=== PATIENT | male | born 1960 | race Caucasian/White ===

== ENCOUNTER → 2018-08-07 08:16 | Outpatient (CLI) | payer BC ==
--- NOTE | 2018-08-10 14:36 | ST ---
PATIENT:DONNY HALL MEDICAL RECORD: [id number] SEX: M LOCATION:[facility] ORDER #: ADMISSION DATE: 08/07/18 AGE OF PATIENT: 57 REFERRING PHYSICIAN: INTERPRETING PHYSICIAN: JOSELO CARRILLO MD DATE OF SERVICE: 08/07/2018 Nuclear Stress Test INDICATION: Angina, abnormal ECG, family history of coronary artery disease. The patient was exercised in standard Evan protocol for 5 minutes 30 seconds, terminated due to achievement of maximum target heart rate response with 33 mCi of sestamibi injected at peak stress 11 mCi were used previously for rest images. FINDINGS: Gated SPECT reveals a preserved mildly decreased ejection fraction at 48% with good wall motioning and thickening and brightening throughout all segments. SPECT imaging Cardiolite was used as myocardial fusion agent. There is definite reversibility inferiorly and laterally as well as apically. This includes the basal, mid apical, inferior segments, the apex itself, apical lateral, mid lateral and basal lateral segments. The degree of reversibility is moderate. The amount of myocardial involved is large. OVERALL IMPRESSION: This is an abnormal nuclear stress test, large area of reversible ischemia, inferior apically as well as laterally suggestive of hemodynamically significant coronary artery disease and possibly multivessel disease. We will proceed with coronary angiography to followup study. TRANSINT:[id number] Voice Confirmation ID: [id number] DOCUMENT ID: [id number] JOSELO CARRILLO MD at 1436 CC: [address] [id number] DICTATION DATE: 08/08/18 1145 SANITATION ENGINEER: 08/09/18 0319 DEP CLI 08/07/18 [place] [id number] [place] [id number]
== END | disposition home or self-care (01) ==
LOC: D.HCCARDIO 07-31 08:30
DX: I20.9 Angina pectoris, unspecified (principal)

== ENCOUNTER → 2018-08-18 05:59 | Outpatient (CLI) | payer BC ==
[~2018-08-18] VITALS: Ht 165.1 cm; Wt 92.3 kg
--- NOTE | ~2018-08-18 | HEMODYNAMI ---
PATIENT:DONNY HALL MEDICAL RECORD: [id number] : 56 LOCATION:[facility] ADMISSION DATE: 08/18/18 Generatedon:08/18/20188:33 Patient name: DONNY HALL Patient #: [id number] SSN: : 1960 Date of study: 08/18/2018 Page: Of Hemodynamic Procedure Report Patient Data Patient Demographics Procedure consent was obtained First Name: DONNY Gender: Male Last Name: RAFAEL : 1960 Patient #: [id number] Age: 57 year(s) Race: Unknown Additional ID: [id number] Contact details Address: [address] [place] [address] [facility] State: [place] City: [place] Zip code: [address] Past Medical History Allergies: No known allergies Admission Admission Data Admission Date: 08/18/2018 Admission Time: 5:59 Procedure Procedure Types Cath Procedure Diagnostic Procedure LHC Coronaries only Sedation Charges Moderate Sedation up to 15 minutes Procedure Description Procedure Date Procedure Date: 08/18/2018 Procedure Start Time: 8:12 Procedure End Time: 8:33 Procedure Staff Name Function Chris Estrada MD Performing Physician Chela Medina RT Monitor Tika Pinon RN Nurse Romulo Walker RN Director Food Safety Nohemi Harper RT Scrub Procedure Data Cath Procedure Fluoroscopy Diagnostic fluoroscopy Total fluoroscopy Time: 6.9 time: 6.9 min min Diagnostic fluoroscopy Total fluoroscopy dose: 691 dose: 691 mGy mGy Contrast Material Contrast Material Type Amount (ml) Isovue 300 43 Entry Location Entry Primary Successful Side Size Upsize Upsize Entry Closure Sales ccessful Closure Location (Fr) 1 (Fr) 2 (Fr) Remarks Device Remarks Radial Right 6 Fr Mechanical artery Short Compression Femoral Right 5 Fr Exoseal artery Estimated blood loss: 5 ml Diagnostic catheters Device Type Used For End Catheter Placement DIAGNOSTIC Carlisle 110cm 5 LV Angiography Fr catheter ([id number]) MULTIPACK JL 4.0 5Fr Left Coronary catheter Angiography MULTIPACK 3DRC 5Fr Right Coronary catheter Angiography MULTIPACK Pigtail 5 Fr LV Angiography catheter DIAGNOSTIC AL1 5Fr LV Angiography catheter ([id number]) Procedure Complications No complications Procedure Medications Medication Administration Route Dosage 0.9% NaCl I.V. 100 ml/hr Oxygen etCO2 Nasal cannula 2 l/min Lidocaine 2% added to field 20 Heparin Flush Bag added to field 2 bags (1000units/500ml NS) Radial Cocktail added to field 1 syringe (Verapomil 2mg/Nitro 400mcg/Heparin 1500units) Versed I.V. 2 mg Fentanyl I.V. 50 mcg Versed I.V. 1 mg Fentanyl I.V. 25 mcg Versed I.V. 1 mg Fentanyl I.V. 25 mcg Hemodynamics Rest Heart Rate: 75 (bpm) Snapshots Pre Cath Intra NCS Post Cath Vital Signs Time Heart Resp SPO2 etCO2 NIBP (mmHg) Rhythm Pain Sedation Rate (ipm) (%) (mmHg) Status Level (bpm) 7:43:02 82 16 98 21.8 144/90(127) NSR 0 (11) 10(A) , No pain 7:47:25 80 17 98 36.8 125/80(99) NSR 0 (11) 10(A) , No pain 7:52:34 72 17 97 37.6 101/81(92) NSR 0 (11) 10(A) , No pain 7:56:42 78 15 97 39.1 105/71(89) NSR 0 (11) 10(A) , No pain 8:00:50 79 15 98 42.1 109/74(85) NSR 0 (11) 10(A) , No pain 8:06:01 70 15 98 34.6 102/65(85) NSR 0 (11) 10(A) , No pain 8:10:13 72 15 96 28.6 104/61(82) NSR 0 (11) 9(A) , No pain 8:14:23 76 16 97 35.3 105/66(83) NSR 0 (11) 9(A) , No pain 8:18:31 80 15 96 25.6 98/63(83) NSR 0 (11) 10(A) , No pain 8:22:41 76 12 97 24.1 109/65(91) NSR 0 (11) 9(A) , No pain 8:26:48 79 12 98 25.8 108/76(92) NSR 0 (11) 9(A) , No pain 8:30:54 73 11 96 37.6 104/70(90) NSR 0 (11) 10(A) , No pain Medications Time Medication Route Dose Verified Delivered Reason Notes Ef fectiveness by by 7:40:26 0.9% NaCl I.V. 100 Chris Tika used for ml/hr Sean Zi procedure MD MG 7:40:33 Oxygen etCO2 2 l/min Chris Tika used for Nasal [facility] procedure cannula MD MG 7:40:39 Lidocaine 2% added 20ml Chris Perez for local to vial [facility] anesthetic field MD SCHREIBER 7:40:47 Heparin Flush added 2 bags Chris Perez used for Bag to [facility] procedure (1000units/500ml field MD SCHREIBER NS) 7:44:30 Radial Cocktail added 1 Chris Chris used for (Verapomil to syringe [facility] procedure 2mg/Nitro field MD SCHREIBER 400mcg/Heparin 1500units) 8:03:59 Versed I.V. 2 mg Chris Tika for SeanClaudio Pinon sedation MD MG 8:04:06 Fentanyl I.V. 50 mcg Chris Tika for St Claudio Pinon sedation MD MG 8:08:46 Versed I.V. 1 mg Chris Tika for [facility] Claudio Pinon sedation MD MG 8:08:49 Fentanyl I.V. 25 mcg Chris Tika for St Claudio Pinon sedation MD MG 8:17:47 Versed I.V. 1 mg [address] Tika for [address] Claudio Pinon sedation MD MG 8:18:26 Fentanyl I.V. 25 mcg Chris Tika for St Claudio Pinon sedation MD MGmedart operator Log Time Note 7:27:18 Time tracking: Regular hours (M-F 7:00 - 5:00) 7:27:22 Plan of Care:Hemodynamics will remain stable., Cardiac rhythm will remain stable., Comfort level will be maintained., Respiratory function will remain adequate., Patient/ family verbilizes understanding of procedure., Procedure tolerated without complication., Recovers from procedure without complications.. 7:27:25 Romulo Walker RN sent for patient. Start room use. 7:36:31 Patient received from Pre/Post Procedure Room to CCL 1 Alert and oriented. Tansferred to table in Supine position. 7:36:32 Warm blankets applied, and dari hugger turned on for patient comfort. 7:36:33 Correct patient and procedure confirmed by team. 7:36:34 Signed procedure consent form obtained from patient. 7:36:37 ECG and BP/O2 sat monitors applied to patient. 7:36:37 Full Disclosure recording started 7:40:26 0.9% NaCl 100 ml/hr I.V. was administered by Tika Pinon RN; used for procedure; 7:40:33 Oxygen 2 l/min etCO2 Nasal cannula was administered by Tika Pinon RN; used for procedure; 7:40:39 Lidocaine 2% 20ml vial added to field was administered by Chris Estrada MD; for local anesthetic; 7:40:47 Heparin Flush Bag (1000units/500ml NS) 2 bags added to field was administered by Chris Estrada MD; used for procedure; 7:41:46 Vital chart was started 7:41:50 Rhythm: sinus rhythm 7:42:02 H&P Date Dictated: 08/14/2018 Within 30 days and on chart., H&P Addendum completed by physician on day of procedure. (MUST COMPLETE FOR ALL OUTPATIENTS). 7:44:12 Pre-procedure instructions explained to patient. 7:44:13 Pre-op teaching completed and patient verbalized understanding. 7:44:18 Family in patients room. 7:44:19 Patient NPO since Midnight. 7:44:26 Patient allergic to No known allergies 7:44:28 Is the patient allergic to Iodine/contrast media? No. 7:44:30 Radial Cocktail (Verapomil 2mg/Nitro 400mcg/Heparin 1500units) 1 syringe added to field was administered by Chris Estrada MD; used for procedure; 7:44:30 Is patient on blood thinner?No 7:44:31 Patient diabetic? No. 7:44:35 Previous problem with sedation/anesthesia? No ? 7:44:36 Snore? Yes 7:44:37 Sleep apnea? No 7:44:39 Deviated septum? No 7:44:40 Opens mouth fully? Yes 7:44:41 Sticks out tongue? Yes 7:44:44 Airway obstruction? No ? 7:44:55 Dentures? No LOST TEETH 7:45:04 Pre procedure: right dorsailis pedis pulse 2+ Normal; easily identifiable; not easily obliterated 7:45:07 Modified Richard's test Ulnar < 7 seconds 7:45:09 Patient pain scale 0/10 ?. 7:45:16 IV patent on arrival in left forearm with 0.9% NaCl at [facility]. 7:45:19 Lab results completed and on chart. 7:45:28 Right Radial & Right Groin area was prepped with chlora-prep and draped in sterile fashion 7:45:34 Alarms reviewed by R. N. 7:45:35 Sharps counted by scrub and verified by R.N. 7:45:38 Use device set Radial Dx or PCI 7:45:39 ACIST Syringe (76587) opened to sterile field. 7:45:40 Medline Cath Pack ([id number]) opened to sterile field. 7:45:40 Bag Decanter (2002S) opened to sterile field. 7:45:41 DIAGNOSTIC WIRE .035 260cm J wire (315005) opened to sterile field. 7:45:41 ACIST Hand Control (40771) opened to sterile field. 7:45:42 ACIST Manifold (95431) opened to sterile field. 7:45:46 MBrace Wrist Support ([id number]) opened to sterile field. 7:45:47 SHEATH 6FR Slender (35-8191) opened to sterile field. 7:48:39 Baseline sample Acquired. 7:52:24 Physician paged 7:53:25 Zero performed for pressure channel P1 8:03:26 Final Timeout: patient, procedure, and site verified with staff and physician. All members of the team are in agreement. 8:03:29 Right Radial site verified by team. 8:03:33 Physical assessment completed. ASA score P 2 - A patient with mild systemic disease as per Chris Estrada MD. 8:03:36 Sedation plan: IV Moderate Sedation Medication:Versed, Fentanyl 8:03:59 Versed 2 mg I.V. was administered by Tika Pinon RN; for sedation; 8:04:06 Fentanyl 50 mcg I.V. was administered by Tika Pinon RN; for sedation; 8:08:46 Versed 1 mg I.V. was administered by Tika Pinon RN; for sedation; 8:08:49 Fentanyl 25 mcg I.V. was administered by Tika Pinon RN; for sedation; 8:12:19 Procedure started. 8:12:28 Local anesthetic to right radial artery with Lidocaine 2% by Chris Estraad MD.INITIAL ACCESS ONLY 8:13:26 A 6 Fr Short sheath was inserted into the Right Radial artery 8:13:39 A DIAGNOSTIC Carlisle 110cm 5 Fr catheter (098319) was advanced over the wire and used for LV Angiography. REMOVED UNABLE TO ADVANCE 8:15:28 GLIDE WIRE Super Stiff Angled 260cm (CZ1778) opened to sterile field. 8:16:02 TORQUE DEVICE PLASTIC .038 ( TD01) opened to sterile field. 8:16:24 SUPER STIFF wire advanced. 8:17:29 Wire removed. 8:17:34 Local anesthetic to right femoral artery with Lidocaine 2% by Chris Estrada MD.ADDITIONAL ACCESS 8:17:47 Versed 1 mg I.V. was administered by Tika Pinon RN; for sedation; 8:18:10 Use device set Multipack Set 8:18:14 DIAGNOSTIC Multipack 5Fr catheter set (MF2250) opened to sterile field. 8:18:26 Fentanyl 25 mcg I.V. was administered by Tika Pinon RN; for sedation; 8:18:31 A 5 Fr sheath was inserted into the Right Femoral artery 8:19:04 A MULTIPACK JL 4.0 5Fr catheter was advanced over the wire and used for Left Coronary Angiography. 8:20:33 SHEATH 5FR Devens (NMQ077) opened to sterile field. 8:21:07 Catheter removed. 8:21:28 A MULTIPACK 3DRC 5Fr catheter was advanced over the wire and used for Right Coronary Angiography. 8:21:57 Catheter removed. 8:23:38 A MULTIPACK Pigtail 5 Fr catheter was advanced over the wire and used for LV Angiography. REMOVED UNABLE TO CROSS VALVE 8:25:27 A DIAGNOSTIC AL1 5Fr catheter ([id number]) was advanced over the wire and used for LV Angiography. 8:26:04 ROADRUNNER .035 260 glide wire (W28239) opened to sterile field. 8:26:56 ROADRUNNER wire advanced. 8::57 Timer 1 started at 8:26 AM, stopped at 8:28 AM, duration 00:02:36 sec. 8:29:00 Catheter removed. 8:29:05 Wire removed. 8:29:19 Sheath removed intact; hemostasis achieved with Exoseal to the Right Femoral artery. 8::32 Sheath removed intact; hemostasis achieved with Mechanical Compression to the Right Radial artery. 8:29:34 Procedure ended.(Physican Out) 8:29:44 Fluoroscopy time 06.90 minutes. 8:29:50 Fluoroscopy dose: 691 mGy 8:29:50 Flurop Dose total: 691 8:30:07 Contrast amount:Isovue 300 43ml. 8:30:09 Sharps counted by scrub and verified by R.N. 8:30:11 TR band inflated with 12cc of air. 8:30:16 Insertion/operative site no bleeding no hematoma. 8:30:19 Post-op/insertion site Right Femoral artery dressed using a 4 x 4 and Tegaderm. 8:30:26 Post right femoral artery:stable, clean and dry 8:30:58 Post right radial artery:stable, clean and dry 8:31:00 Post Procedure Pulses reassessed and unchanged 8:31:03 Post-procedure physical assessment completed. ASA score P 2 - A patient with mild systemic disease as per Chris Estrada MD. 8:31:06 Post procedure rhythm: unchanged. 8:31:08 Estimated blood loss: 5 ml 8:31:09 Post procedure instruction explained to patient.Patient verbalizes understanding. 8:31:09 Patient needs reinforcement of post procedure teaching. 8:31:18 Procedure type changed to Cath procedure, Diagnostic procedure, LHC, Coronaries only, Sedation Charges, Moderate Sedation up to 15 minutes 8::34 Procedure Complication : No complications 8:31:36 See physician's report for complete and final results. 8:32:08 TR BAND Standard ([id number]) opened to sterile field. 8:32:18 EXOSEAL 5Fr (EX500) opened to sterile field. 8:32:19 Tegaderm 4 x 4 (1626W) opened to sterile field. 8:32:38 Procedure and supply charges have been captured, reviewed, submitted and are correct. 8:32:47 Vital chart was stopped 8:32:49 Report given to Pre/Post Procedure Room. 8:32:51 Patient transfered to Pre/Post Procedure Room with Stretcher. 8:33:00 Procedure ended. 8:33:00 Full Disclosure recording stopped 8:33:03 End room use (Document Last) Device Usage Item Name Manufacture Quantity Catalog Hospital Part Current Minimal Lot# / Number Charge Number Stock Stock Serial# Code ACIST Acist 1 97032 226866 005170 465966 20 Syringe Medical (66620) Systems Inc Medline Medline 1 [id number] 399346 65211 859027 5 Cath Pack ([id number]) Bag Microtek 1 2001S 339766 73271 229056 5 Decanter Medical Inc. () DIAGNOSTIC St Darryn 1 507473 028369 666935 523017 30 WIRE .035 260cm J wire (050146) ACIST Hand Acist 1 19877 583950 348270 840924 5 Control Medical (68371) Systems Inc ACIST Acist 1 35530 550131 716305 068024 5 Manifold Medical (27214) Systems Inc MBrace Advanced 1 140-0250-00 847664 70583 908446 5 Wrist Vascular Support Dynamics ([id number]) SHEATH 6FR Terumo 1 [id number] 156619 421900 764229 5 Slender (80-1060) DIAGNOSTIC Terumo 1 40-5013 592810 278538 784083 5 Carlisle 110cm 5 Fr catheter (534826) GLIDE WIRE Terumo 1 [id number] 155621 622919 009279 5 Super Stiff Angled 260cm (WY3490) TORQUE [place] 1 TD01 988303 853705 054338 5 DEVICE Scientific PLASTIC .038 ( TD01) DIAGNOSTIC Cardinal 1 RV6849 582122 86782 982509 30 Multipack Health 5Fr catheter set (JK6343) MULTIPACK Cardinal 1 160771 5 JL 4.0 5Fr Health catheter SHEATH 5FR Terumo 1 RYI957 669595 671447 155369 5 Devens (BDL471) MULTIPACK Cardinal 1 014478 5 3DRC 5Fr Health catheter MULTIPACK Cardinal 1 500941 5 Pigtail 5 Health Fr catheter DIAGNOSTIC Cardinal 1 [id number] 357720 215028 759567 15 AL1 5Fr Health catheter (130589N) [facility] Medical 1 E49290 173784 486383 224463 5 .035 260 glide wire (G56988) TR BAND Terumo 1 [id number] 681674 200462 656037 40 Standard (LVB13GME) EXOSEAL 5Fr Cardinal 1 EX500 790783 144366 241916 10 (EX500) Health Tegaderm 4 3M 1 1626W 362040 368399 703866 5 x 4 (1626W) Signature Audit Dow[place] Stage Time Signature Unsigned Intra-Procedure 08/18/2018 Chela 8:33:36 AM Counts RT(R) Signatures Monitor : Chela Signature : Counts RT Date : Time : [place] [id number] [place] [address]
[~2018-08-18 05:59] MED LIST: AMIODARONE HCL200 MG PO; AUGMENTIN 875-11 TAB PO; BAYER CHEWABLE81 MG PO; ECOTRIN325 MG PO; HEMOCYTE PLUS C1 CAP PO; K-DUR20 MEQ PO; LASIX40 MG PO; LOPRESSOR25 MG PO; NIFEDIPINE30 MG/BOT1 PO; PERCOCET 5-3251 TAB PO; ZANTAC300 MG PO
[2018-08-18 06:50] VITALS: BP 135/82; Ht 165.1 cm; Wt 92.3 kg
[2018-08-18 06:55] LABS: BASOPHILS 0.5 % (0-2); EOSINOPHILS 12.7 % (0-7); HEMATOCRIT 44.5 % (42.0-54.0); HEMOGLOBIN 15.2 g/dL (13.5-17.5); IMMATURE GRANULOCYTES 0.2 % (0-5); LYMPHOCYTES 40.4 % (15-50); MCH 30.3 pg (26.0-34.0); MCHC 34.2 g/dL (31.0-37.0); MCV 88.8 fL (80.0-100.0); MEAN PLATELET VOLUME 10.5 fL (7.4-10.4); MONOCYTES 11.5 % (2-11); NEUTROPHILS 34.7 % (40-80); PLATELET COUNT 251 10x3/uL (130-400); RBC 5.01 10x6/uL (4.20-6.10); RDW 12.8 % (11.5-14.5); WBC 8.3 10x3/uL (4.8-10.8)
[2018-08-18 07:01] LABS: CALC OSMOLALITY 280 mosm/kg (275-300); CALCIUM 8.9 mg/dL (8.5-10.1); CHLORIDE - SERUM 103 mmol/L (98-107); GLUCOSE 114 mg/dL (74-106); POTASSIUM - SERUM 3.9 mmol/L (3.5-5.1); SODIUM 139 mmol/L (136-145); UREA NITROGEN 17 mg/dL (7-18); eGFR NON AFRICAN AMERICAN 81 mL/min (90-120)
--- NOTE | 2018-08-18 08:56 | NUR ---
RECIEVED TO ROOM VIA STRETCHER FROM ETL ANALYST DEVELOPER WITH TR BAND TO R/WRIST CDI AND 5 FR EXOSEAL R/GROIN CDI NO BLEEDING OR HEMATOMA NOTED. PATIENT CONNECTED TO MONITOR FOR OBSERVATION WITH HR 72 BP 101/62 CHEST PAIN IS DENIED. INSTRUCTED PATIENT TO KEEP HEAD FLAT ON PILLOW WITH RLE STRAIGHT
--- NOTE | 2018-08-18 09:03 | NUR ---
DR SHARP PRESENT AT BEDSIDE TALKING TO PATIENT AND FAMILY. VSS WITH NO DISTRESS. TR BAND IS TO R/WRIST CDI AND 5 FR EXOSEAL R/GROIN IS CDI
--- NOTE | 2018-08-18 09:19 | NUR ---
PATIENT TOLERATING SIPS OF WATER WITH NAUSEA DENIED. TR BAND IS CDI AND 5 FR EXOSEAL TO R/GROIN REMAINS CDI NO BLEEDING NOTED CALL LIGHT IN REACH WITH FAMILY AT SIDE
--- NOTE | 2018-08-18 09:42 | NUR ---
RESTING QUIETLY WITH NO DISTRESS NOTED. TR BAND IS CDI AND 5 FR EXOSEAL R/GROIN IS CDI
--- NOTE | 2018-08-18 10:28 | NUR ---
REPOSITIONED TO SITTING WITH HOB UP 30 FOR COMFORT.4 CC AIR REMOVED FROM TR BAND WITH NO BLEEDING NOTED. 5 FR EXOSEAL R/GROIN REMAINS CDI
--- NOTE | 2018-08-18 10:37 | NUR ---
4 CC AIR REMOVED FROM TR BAND NO BLEEDING NOTED.
--- NOTE | 2018-08-18 10:55 | NUR ---
4 CC AIR REMOVED FROM TR BAND WITH NO BLEEDING. PIV REMOVED WITH DRESSING APPLIED. PATIENT DENIED CHEST PAIN GETTING UP TO GET DRESSED FOR DISCHARGE HOME
--- NOTE | 2018-08-18 11:14 | NUR ---
VERBAL AND WRITTEN DISCHARGE GONE OVER WITH PATIENT AND FAMILY. TR BAND REMOVED WITH DRESSING APPLIED. PATIENT LEFT VIA WC TO PARKING FOR TRANSPORT HOME NO DISTRESS
--- NOTE | 2018-08-20 13:30 | OP ---
PATIENT NAME: DONNY HALL MEDICAL RECORD: [id number] :56 LOCATION:D.[facility] ADMISSION DATE: SURGEON: JIAN SHARP MD DATE OF OPERATION: 08/18/2018 PROCEDURES: Left heart catheterization, selective coronary angiography, right femoral artery approach. CATHETERS: A 5-Israeli sheath, 5/4 left and right Tyree. Attempt to cross the aortic valve with a pigtail as well as AR, unable to cross the aortic valve. Previous gradient of 44 mmHg. LV function normal on echocardiographic study. CORONARY ANATOMY: LEFT MAIN: Left main is free of disease. LAD: Has an 80% stenosis before takeoff of a large diagonal, both appear to be reasonable targets. CIRCUMFLEX: Left dominant system with a proximal stenosis of 80%. RIGHT CORONARY ARTERY: Rudimentary, but does have significant proximal stenosis. IMPRESSION: Multivessel disease, at least moderate . Probably best, given young age, etc, served by bypass graft as well as AVR. TRANSINT:[id number] Voice Confirmation ID: [id number] DOCUMENT ID: [id number] JIAN SHARP MD at 1330 CC: [id number] DICTATION DATE: 08/18/18 0836 FORM BUILDER HELPER: 08/18/18 1112 DEP CLI 08/18/[address] [facility] [address] [place] [address]
== END | disposition home or self-care (01) ==
LOC: D.CATH 05:59
PROVIDERS: Internal Medicine Interventional Cardiology
DX: I25.110 Atherosclerotic heart disease of native coronary artery with unstable angina pectoris (principal); R94.30 Abnormal result of cardiovascular function study, unspecified; I35.0 Nonrheumatic aortic (valve) stenosis

== ENCOUNTER 2018-08-27 05:00 | Inpatient (IN) | payer BC ==
[2018-08-24 16:07] LABS: BASOPHILS 0.5 % (0-2); EOSINOPHILS 6.9 % (0-7); HEMATOCRIT 44.6 % (42.0-54.0); HEMOGLOBIN 15.3 g/dL (13.5-17.5); IMMATURE GRANULOCYTES 0.2 % (0-5); LYMPHOCYTES 40.2 % (15-50); MCH 30.6 pg (26.0-34.0); MCHC 34.3 g/dL (31.0-37.0); MCV 89.2 fL (80.0-100.0); MEAN PLATELET VOLUME 10.3 fL (7.4-10.4); MONOCYTES 12.7 % (2-11); NEUTROPHILS 39.5 % (40-80); PLATELET COUNT 269 10x3/uL (130-400); RDW 12.3 % (11.5-14.5); WBC 10.8 10x3/uL (4.8-10.8)
[2018-08-24 16:21] LABS: APPEARANCE CLEAR (CLEAR); BILIRUBIN NEGATIVE (NEGATIVE); COLOR YELLOW (YELLOW); GLUCOSE 50 mg/dL (NEGATIVE); KETONE NEGATIVE (NEGATIVE); NITRITE NEGATIVE (NEGATIVE); PROTEIN NEGATIVE (NEGATIVE); RED CELLS - URINE OCC /hpf (0-5); SPECIFIC GRAVITY 1.015 (1.005-1.020); UROBILINOGEN NORMAL (NORMAL); WHITE CELLS - URINE OCC /hpf (0-5)
[2018-08-24 16:22] LABS: MUCUS <1+ /lpf (NONE SEEN)
[2018-08-24 16:32] LABS: ALBUMIN 3.8 g/dL (3.4-5.0); ALKALINE PHOSPHATASE 57 U/L (46-116); ALT (SGPT) 50 U/L (10-68); CALC OSMOLALITY 273 mosm/kg (275-300); CARBON DIOXIDE 26.9 mmol/L (21.0-32.0); CHLORIDE - SERUM 100 mmol/L (98-107); CHOLESTEROL, TOTAL 214 mg/dL (0-200); GLUCOSE 72 mg/dL (74-106); PHOSPHOROUS 3.8 mg/dL (2.5-4.9); POTASSIUM - SERUM 3.4 mmol/L (3.5-5.1); PROTEIN - SERUM 8.1 g/dL (6.4-8.2); SODIUM 137 mmol/L (136-145); THYROID STIMULATING HORMONE 1.25 uIU/mL (0.36-3.74); UREA NITROGEN 15 mg/dL (7-18); URIC ACID 5.6 mg/dL (2.6-7.2); eGFR NON AFRICAN AMERICAN 81 mL/min (90-120)
[2018-08-24 17:07] LABS: APTT 26.5 SECONDS (22.8-39.4); INR 1.05 (0.85-1.17); PROTIME 13.2 SECONDS (11.6-15.0)
[2018-08-25 09:17] LABS: HEPATITIS C ANTIBODY 0.1 S/CO RAT (0.0-0.9)
[2018-08-27] VITALS (34 sets, daily range): BP systolic 93–142; BP diastolic 57–79; BMI 34.5; BMI 36.3
[~2018-08-27] VITALS: Ht 165.1 cm; Wt 95.2 kg
[~2018-08-27 05:00] MED LIST changes: -AMIODARONE HCL200 MG PO; -AUGMENTIN 875-11 TAB PO; -ECOTRIN325 MG PO; -HEMOCYTE PLUS C1 CAP PO; -K-DUR20 MEQ PO; -LASIX40 MG PO; -LOPRESSOR25 MG PO; -PERCOCET 5-3251 TAB PO
[2018-08-28] VITALS (79 sets, daily range): BP systolic 77–119; BP diastolic 46–84; Ht 165.1 cm; Wt 95.2 kg
[2018-08-28 06:00] LABS: HEMATOCRIT 33.7 % (42.0-54.0); HEMOGLOBIN 11.1 g/dL (13.5-17.5); MCH 29.6 pg (26.0-34.0); MCHC 32.9 g/dL (31.0-37.0); MCV 89.9 fL (80.0-100.0); MEAN PLATELET VOLUME 10.2 fL (7.4-10.4); RBC 3.75 10x6/uL (4.20-6.10); WBC 14.4 10x3/uL (4.8-10.8)
[2018-08-28 06:47] LABS: ALBUMIN 2.5 g/dL (3.4-5.0); ANION GAP 12.9 mmol/L (8-16); BILIRUBIN - TOTAL 0.69 mg/dL (0.2-1.3); CARBON DIOXIDE 27.1 mmol/L (21.0-32.0); CREATININE - SERUM 1.1 mg/dL (0.6-1.3); PROTEIN - SERUM 5.2 g/dL (6.4-8.2)
--- NOTE | 2018-08-28 13:44 | OP ---
PATIENT NAME: DONNY HALL MEDICAL RECORD: [id number] :56 LOCATION:D[facility] ADMISSION DATE:08/27/18 SURGEON: ERNST DEAL MD DATE OF OPERATION: 08/27/2018 6SURGEON: Ernst Deal MD DIRECTOR OF CORPORATE SPONSORSHIPS: RENY Pittman MD and Mono Gomez. OPERATION PERFORMED: 1. Aortic valve replacement (21-mm Payan pericardial bioprosthesis). 2. Coronary artery bypass graft times 3 (left internal mammary artery to LAD, reverse saphenous vein graft from aorta to first diagonal and aorta to posterior descending artery branch of circumflex coronary artery). PREOPERATIVE DIAGNOSES: Aortic stenosis and coronary artery disease. POSTOPERATIVE DIAGNOSES: Aortic stenosis and coronary artery disease. ANESTHESIA: General endotracheal anesthesia. ESTIMATED BLOOD LOSS: Total cardiopulmonary bypass with Cell Saver retransfusion. COMPLICATIONS: None. CONDITION: Stable. SPECIMENS: Mediastinal lymph node. DISPOSITION: CV ICU. OPERATIVE FINDINGS: 1. Transesophageal echocardiography confirmed, severe aortic stenosis, good contractility, no perivalvular leak after aortic valve replacement. 2. Small greater saphenous vein near the knee, a dual system in the thigh up to the upper thigh, so endoscopic vein harvest was aborted. One thin-walled and smaller caliber resection was used for the diagonal graft and the best caliber piece for the posterior descending graft. 3. Good quality left internal mammary artery. The LAD was a severely diseased 1.5 mm vessel. 4. The bifurcating diagonal inferior branch was 1.25 mm severely diseased vessel. 5. The posterior descending artery was a 1.5 mm severely diseased vessel. 6. Severe aortic valve leaflet and annular calcification. Additional specimen aortic valve leaflets. OPERATIVE INDICATION: Aortic stenosis and coronary artery disease. DESCRIPTION OF PROCEDURE: The patient was brought to the operating suite. General anesthesia was obtained, the patient was prepped and draped. Greater saphenous vein was harvested from the patient's right lower extremity initially with endoscopic harvest and then using bridging incisions. This portion of the procedure was performed by Dr. Pittman, the health information assistant. The use of an health information assistant surgeon saved approximately 1 hour of general anesthetic time. The vessel was OPERATIVE REPORT [id number] DONNY HALL removed. Side branches were clipped and thin sites were oversewn. Leg was later closed in 2 layers with a drain. Median sternotomy incision was made. Subcutaneous tissue was divided by electrocautery. The sternum was divided with a saw. The left hemisternum was elevated. The left pleural cavity was entered. Left internal mammary vein was taken as a pedicle graft. Sternal retractor was placed. Pericardium was opened. Heparin was given. Aorta was cannulated. Dual stage venous cannula was inserted. Activated clotting time was appropriately elevated. The patient placed on cardiopulmonary bypass. Sites for distal anastomoses were selected. Retrograde cardioplegic cannula was inserted. Antegrade cardioplegia cannula was inserted. The patient was cooled. Crossclamp was placed. Cardioplegia given antegrade and retrograde and this repeated at 15 to 20 intervals including down the completed vein grafts. Left ventricular vent was placed through right superior pulmonary vein. Distal anastomoses were performed in standard technique. The left internal mammary artery anastomosis was redone due to a tear in the thin portion of the internal mammary at the site of anastomosis, but good Doppler signal after anastomosis and after reversal of heparin. A transverse aortotomy was performed. Aortic valve was visualized, debrided careful to remove all bits of debris with thorough irrigation and the valve was sized to appropriate size. Pledgeted sutures were placed from ventricular to the aortic side. Then, through the valve sewing ring, valve was carefully lowered in place and sutures were tied inspect the valve. There was no subvalvular obstruction and there was no perivalvular spaces for leak. Aortotomy was closed with double running pledgeted suture line. Two punch sites were made. Proximal anastomoses were performed and prior to tying the anastomoses, the patient was placed in Trendelenburg position and utilizing transesophageal echocardiography for assistance in deairing. The ventricular apex was de-aired with Valsalva maneuver and then the crossclamp was removed. Proximal anastomoses were tied down. Vein grafts were de-aired. Flow was restored. Proximal and distal anastomotic sites were inspected for bleeding. The patient resumed spontaneous rhythm. Atrial and ventricular pacing wires were placed. The patient was fully rewarmed, weaned from cardiopulmonary bypass and stable. The patient was decannulated. The cannula sites were oversewn. Protamine was given. Antibiotic irrigation ensued. The graft lay appropriately. Drains were placed in mediastinum both pleural cavities. Pericardial fat was loosely reapproximated. The left chest evacuated and irrigated. The internal mammary harvest site was hemostatic. The sternum was closed with wires. Fascia was closed. Subcutaneous tissue closed. Skin was closed. Dermabond was placed. The needle and sponge counts were correct. The patient was taken to ICU in stable condition. TRANSINT:[id number] Voice Confirmation ID: [id number] DOCUMENT ID: [id number] ERNST DEAL MD at 1344 CC: JIAN SHARP MD [id number] DICTATION DATE: 08/27/181748 CLEANER INDUSTRIAL: 08/27/189 ADM IN [place] [id number] [place] [address]
[2018-08-29] VITALS (59 sets, daily range): BP systolic 99–148; BP diastolic 45–94
[2018-08-29 06:34] LABS: MCH 29.9 pg (26.0-34.0); MCHC 33.8 g/dL (31.0-37.0); MCV 88.4 fL (80.0-100.0); MEAN PLATELET VOLUME 10.6 fL (7.4-10.4); RDW 12.8 % (11.5-14.5); WBC 17.4 10x3/uL (4.8-10.8)
[2018-08-29 06:38] LABS: ALBUMIN 2.3 g/dL (3.4-5.0); ALKALINE PHOSPHATASE 25 U/L (46-116); BILIRUBIN - TOTAL 0.62 mg/dL (0.2-1.3); CALC OSMOLALITY 273 mosm/kg (275-300); CALCIUM 7.5 mg/dL (8.5-10.1); CARBON DIOXIDE 28.4 mmol/L (21.0-32.0); CHLORIDE - SERUM 101 mmol/L (98-107); CREATININE - SERUM 0.9 mg/dL (0.6-1.3); GLUCOSE 138 mg/dL (74-106); PROTEIN - SERUM 5.3 g/dL (6.4-8.2); SODIUM 135 mmol/L (136-145); UREA NITROGEN 17 mg/dL (7-18); eGFR NON AFRICAN AMERICAN > 90 mL/min (90-120)
[2018-08-29 06:39] LABS: ALT (SGPT) 89 U/L (10-68); POTASSIUM - SERUM 5.2 mmol/L (3.5-5.1)
[2018-08-29 06:42] LABS: HEMOGLOBIN 8.8 g/dL (13.5-17.5); RBC 2.94 10x6/uL (4.20-6.10)
[2018-08-30] VITALS (30 sets, daily range): BP systolic 58–140; BP diastolic 38–81
[2018-08-30 05:52] LABS: HEMATOCRIT 25.9 % (42.0-54.0); HEMOGLOBIN 8.6 g/dL (13.5-17.5); MCH 29.5 pg (26.0-34.0); MCHC 33.2 g/dL (31.0-37.0); MCV 88.7 fL (80.0-100.0); MEAN PLATELET VOLUME 10.7 fL (7.4-10.4); RBC 2.92 10x6/uL (4.20-6.10)
[2018-08-30 06:56] LABS: ALBUMIN 2.5 g/dL (3.4-5.0); ALKALINE PHOSPHATASE 31 U/L (46-116); ALT (SGPT) 98 U/L (10-68); BILIRUBIN - TOTAL 0.53 mg/dL (0.2-1.3); CALCIUM 7.5 mg/dL (8.5-10.1); CARBON DIOXIDE 28.4 mmol/L (21.0-32.0); CHLORIDE - SERUM 99 mmol/L (98-107); GLUCOSE 135 mg/dL (74-106); PROTEIN - SERUM 5.5 g/dL (6.4-8.2); SODIUM 137 mmol/L (136-145); eGFR NON AFRICAN AMERICAN 81 mL/min (90-120)
[2018-08-30 06:57] LABS: CALC OSMOLALITY 278 mosm/kg (275-300); POTASSIUM - SERUM 3.4 mmol/L (3.5-5.1); UREA NITROGEN 22 mg/dL (7-18)
[2018-08-31] VITALS (25 sets, daily range): BP systolic 84–138; BP diastolic 55–81
[2018-08-31 06:23] LABS: HEMATOCRIT 23.2 % (42.0-54.0); HEMOGLOBIN 7.7 g/dL (13.5-17.5); MCH 30.1 pg (26.0-34.0); MCHC 33.2 g/dL (31.0-37.0); MCV 90.6 fL (80.0-100.0); MEAN PLATELET VOLUME 10.7 fL (7.4-10.4); RBC 2.56 10x6/uL (4.20-6.10); RDW 13.6 % (11.5-14.5); WBC 14.6 10x3/uL (4.8-10.8)
[2018-08-31 06:39] LABS: ALBUMIN 2.2 g/dL (3.4-5.0); ALKALINE PHOSPHATASE 34 U/L (46-116); ALT (SGPT) 85 U/L (10-68); BILIRUBIN - TOTAL 0.48 mg/dL (0.2-1.3); CALC OSMOLALITY 267 mosm/kg (275-300); CALCIUM 7.2 mg/dL (8.5-10.1); CARBON DIOXIDE 27.7 mmol/L (21.0-32.0); CHLORIDE - SERUM 97 mmol/L (98-107); GLUCOSE 108 mg/dL (74-106); POTASSIUM - SERUM 3.9 mmol/L (3.5-5.1); PROTEIN - SERUM 5.8 g/dL (6.4-8.2); SODIUM 131 mmol/L (136-145); UREA NITROGEN 24 mg/dL (7-18); eGFR NON AFRICAN AMERICAN 81 mL/min (90-120)
--- NOTE | 2018-08-31 12:19 | MORECARE ---
CASE MANAGEMENT DISCHARGE SUMMARY PATIENT: DONNY HALL JO UNIT: [id number] ADM DATE: 08/27/18 AGE: 57 : 56 SEX: M [facility] AUTHOR: JACQUIE BRITT PHYSICIAN: REFERRING PHYSICIAN: KWAN DEAL MD DATE OF SERVICE: 08/31/18 Discharge Plan Patient Name: DONNY HALL [facility] : 1960 Planned Disposition: Home Anticipated Discharge Date: Discharge Date: Expected LOS: Initial Reviewer: [email or web address] Initial Review Date: 08/31/2018 Generated: 08/31/18 1:19 pm DCPIA - Discharge Planning Initial Assessment Updated by [email or web address]: Alberta Mendoza on 08/31/18 12:18 pm * Is the patient Alert and Oriented? Yes * How many steps to enter\exit or inside your home? * PCP CHRISTI COLE * [facility] * Preadmission Environment Home with Family * ADLs Independent * Other Equipment WALKER, CANE, WHEELCHAIR AVAILABLE IF NEEDED * List name and contact numbers for known caregivers / representatives who currently or will assist patient after discharge: AIDA HALL - [facility] - [phone] * Verbal permission to speak to the caregivers and representatives has been obtained from the patient. Yes * Community resources currently utilized None * Additional services required to return to the preadmission environment? No * Can the patient safely return to the preadmission environment? Yes * Has this patient been hospitalized within the prior 30 days at any hospital? No Patient Name: DONNY HALL Page [phone] at 1219 All edits/amendments must be made on the electronic document DICTATION DATE: 08/31/18 1219 PASSENGER REPRESENTATIVE: GARRETT 08/31/18 1219 RPT#: [id number] DC DATE: STATUS: ADM IN [facility] [address] [place] [address] END OF REPORT
--- NOTE | 2018-08-31 12:27 | MORECARE ---
CASE MANAGEMENT DISCHARGE SUMMARY PATIENT: DONNY HALL JO UNIT: [id number] ADM DATE: 08/27/18 AGE: 57 : 56 SEX: M ROOM/BED: D[facility] AUTHOR: LORENZA,DOC PHYSICIAN: REFERRING PHYSICIAN: KWAN DEAL MD DATE OF SERVICE: 08/31/18 Discharge Plan Patient Name: DONNY HALL Facility: [facility]:[place] : 1960 Planned Disposition: Home Anticipated Discharge Date: Discharge Date: Expected LOS: Initial Reviewer: [email or web address] Initial Review Date: 08/31/2018 Generated: 08/31/18 1:26 pm Comments DCP- Discharge Planning Updated by [email or web address]: Alberta Mendoza on 08/31/18 11:[address] Patient Name: DONNY HALL Admission Status: Elective Accout number: [id number] Admission Date: 08-27-2018 : 1960 Admission Diagnosis: Attending: KWAN DEAL Current LOS: 4 Anticipated DC Date: Planned Disposition: Home Primary Insurance: [employer] OUT OF STATE Discharge Planning Comments: CM met with patient and spouse at bedside after obtaining verbal consent. Patient states he plans on returning home after discharge with his . Patient states he will have family transport him home via private vehicle. Patient denies any discharge needs at this time. CM will continue to follow and assist as needed for discharge planning / needs. Document Restorer: Alberta Mendoza DCPIA - Discharge Planning Initial Assessment Updated by [email or web address]: Alberta Mendoza on 08/31/18 12:18 pm * Is the patient Alert and Oriented? Yes * How many steps to enter\exit or inside your home? * PCP CHRISTI COLE * [facility] * Preadmission Environment Home with Family * ADLs Independent * Other Equipment WALKER, CANE, WHEELCHAIR AVAILABLE IF NEEDED * List name and contact numbers for known caregivers / representatives who currently or will assist patient after discharge: AIDA HALL - [facility] - [phone] * Verbal permission to speak to the caregivers and representatives has been obtained from the patient. Yes * Community resources currently utilized None * Additional services required to return to the preadmission environment? No * Can the patient safely return to the preadmission environment? Yes * Has this patient been hospitalized within the prior 30 days at any hospital? No Last DP export: 08/31/18 11:19 a Patient Name: DONNY HALL Page [phone] at 1227 All edits/amendments must be made on the electronic document DICTATION DATE: 08/31/181225 SAFETY NET MAKER: GARRETT 08/31/186 RPT#: [id number] DC DATE: STATUS: ADM IN [facility] [address] [place] [address] END OF REPORT
--- NOTE | 2018-08-31 15:26 | TEE ---
PATIENT:DONNY HALL MEDICAL RECORD: [id number] LOCATION:[place] [address] AGE OF PATIENT: 57 ADMISSION DATE: 08/27/18 SEX: M REFERRING PHYSICIAN: INTERPRETING PHYSICIAN: JIAN SHARP MD TRANSESOPHAGEAL ECHOCARDIOGRAM Date: 08/27/18 VANESSA CHARGE Y INDICATIONS: CABG/AVR PREMEDICATIONS: PATIENT'S RESPONSE PROCEDURE DOPPLER MEASUREMENTS: LVIT LA PA RA LVOT RVOT Asc. Ao AV Gradient Peak AV Mean AV Area MV Gradient Peak MV Mean MV Area INTERPRETATION: Doppler: 2-D: COLOR FLOW DOPPLER NORMAL SALINE STUDY: MISCELLANOUS: DIAGNOSIS: PLAN: Buyer Tobacco Head:3 Dr. Phan Athletic Equipment Custodian: Dustin IRWIN COMMENTS: DATE OF SERVICE: 08/27/2018 Intraoperative Transesophageal Echocardiogram Preoperatively, LVH is present. LV internal dimensions and wall motion are normal. The aortic valve is obviously stenotic with restriction of leaflet motion. Postoperatively, LV function remains normal with good regional wall motion. Prosthetic aortic valve is noted without significant valve dysfunction. TRANSESOPHAGEAL ECHOCARDIOGRAM REPORT [id number] DONNY HALL TRANSINT:[id number] Voice Confirmation ID: [id number] DOCUMENT ID: [id number] at 1526 CC: [id number] DICTATION DATE: 08/27/18 1530 SCIENCE EDITOR: 08/28/18 0032 ADM IN [facility] [address] [place] [id number]
[2018-09-01] VITALS (24 sets, daily range): BP systolic 96–133; BP diastolic 55–75
[2018-09-01 06:47] LABS: ALBUMIN 2.3 g/dL (3.4-5.0); ALKALINE PHOSPHATASE 37 U/L (46-116); ALT (SGPT) 81 U/L (10-68); BILIRUBIN - TOTAL 0.55 mg/dL (0.2-1.3); CALC OSMOLALITY 274 mosm/kg (275-300); CALCIUM 7.7 mg/dL (8.5-10.1); CARBON DIOXIDE 23.4 mmol/L (21.0-32.0); CHLORIDE - SERUM 102 mmol/L (98-107); GLUCOSE 98 mg/dL (74-106); PROTEIN - SERUM 6.1 g/dL (6.4-8.2); SODIUM 136 mmol/L (136-145); UREA NITROGEN 21 mg/dL (7-18); eGFR NON AFRICAN AMERICAN 81 mL/min (90-120)
[2018-09-01 07:02] LABS: HEMATOCRIT 25.1 % (42.0-54.0); HEMOGLOBIN 8.2 g/dL (13.5-17.5); MCH 29.6 pg (26.0-34.0); MCHC 32.7 g/dL (31.0-37.0); MCV 90.6 fL (80.0-100.0); MEAN PLATELET VOLUME 10.5 fL (7.4-10.4); RBC 2.77 10x6/uL (4.20-6.10); WBC 15.2 10x3/uL (4.8-10.8)
[2018-09-02] VITALS (17 sets, daily range): BP systolic 100–126; BP diastolic 57–78
[2018-09-02] MEDS ORDERED: LOPRESSOR25 MG PO (14:27)
[2018-09-02] MEDS ORDERED: HEMOCYTE PLUS C1 CAP PO (14:27)
[2018-09-02] MEDS ORDERED: AMIODARONE HCL200 MG PO (14:27)
[2018-09-02] MEDS ORDERED: ECOTRIN325 MG PO (14:28)
[2018-09-02] MEDS ORDERED: LASIX40 MG PO (14:29)
[2018-09-02] MEDS ORDERED: PERCOCET 5-3251 TAB PO (14:32)
[2018-09-02] MEDS ORDERED: K-DUR20 MEQ PO (14:35)
[2018-09-02] MEDS ORDERED: AUGMENTIN 875-11 TAB PO (14:37)
--- NOTE | 2018-09-03 10:27 | MORECARE ---
CASE MANAGEMENT DISCHARGE SUMMARY PATIENT: DONNY HALL JO UNIT: [id number] ADM DATE: 08/27/18 AGE: 57 : 56 SEX: M ROOM/BED: D[facility] AUTHOR: LORENZA,DOC PHYSICIAN: REFERRING PHYSICIAN: KWAN DEAL MD DATE OF SERVICE: 09/03/18 Discharge Plan Patient Name: DONNY HALL Facility[facility]:[place] : 1960 Planned Disposition: Home Anticipated Discharge Date: Discharge Date: 09/02/2018 Expected LOS: Initial Reviewer: [email or web address] Initial Review Date: 08/31/2018 Generated: 09/03/18 11:27 am Comments DCP- Discharge Planning Updated by [email or web address]: Alberta Mendoza on 08/31/18 11:[address] Patient Name: DONNY HALL Admission Status: Elective Accout number: [id number] Admission Date: 08-27-2018 : 1960 Admission Diagnosis: Attending: KWAN DEAL Current LOS: 4 Anticipated DC Date: Planned Disposition: Home Primary Insurance: [employer] OUT OF STATE Discharge Planning Comments: CM met with patient and spouse at bedside after obtaining verbal consent. Patient states he plans on returning home after discharge with his . Patient states he will have family transport him home via private vehicle. Patient denies any discharge needs at this time. CM will continue to follow and assist as needed for discharge planning / needs. Cast Iron Drain Pipe Layer: Alberta Mendoza DCPIA - Discharge Planning Initial Assessment Updated by [email or web address]: Alberta Mendoza on 08/31/18 12:18 pm * Is the patient Alert and Oriented? Yes * How many steps to enter\exit or inside your home? * PCP CHRISTI COLE * [facility] * Preadmission Environment Home with Family * ADLs Independent * Other Equipment WALKER, CANE, WHEELCHAIR AVAILABLE IF NEEDED * List name and contact numbers for known caregivers / representatives who currently or will assist patient after discharge: AIDA HALL - [facility] - [phone] * Verbal permission to speak to the caregivers and representatives has been obtained from the patient. Yes * Community resources currently utilized None * Additional services required to return to the preadmission environment? No * Can the patient safely return to the preadmission environment? Yes * Has this patient been hospitalized within the prior 30 days at any hospital? No Last DP export: 08/31/18 11:27 a Patient Name: DONNY HALL Page [phone] at 1027 All edits/amendments must be made on the electronic document DICTATION DATE: 09/03/18 1026 PRINTED CIRCUIT BOARDS PINNER: GARRETT 09/03/18 1026 RPT#: [id number] DC DATE:09/02/18 STATUS: DIS IN [facility] [address] [place] [address] END OF REPORT
== END 2018-09-02 17:30 | disposition home or self-care (01) | DRG 220 ==
LOC: D.SDCHOLD 05:00 → D.CVICU 05:00 → D.SDCHOLD 07:30 → D.CVICU 15:08
PROVIDERS: Internal Medicine Cardiovascular Disease; ADMIT Thoracic Surgery (Cardiothoracic Vascular Surgery)
PROC: 021109W Bypass Coronary Artery, Two Arteries from Aorta with Autologous Venous Tissue, Open Approach (ICD-10-PCS; 2018-08-27)
PROC: 06BP0ZZ Excision of Right Saphenous Vein, Open Approach (ICD-10-PCS; 2018-08-27)
PROC: 5A1221Z Performance of Cardiac Output, Continuous (ICD-10-PCS; 2018-08-27)
PROC: B24BZZ4 Ultrasonography of Heart with Aorta, Transesophageal (ICD-10-PCS; 2018-08-27)
PROC: 02100Z9 Bypass Coronary Artery, One Artery from Left Internal Mammary, Open Approach (ICD-10-PCS; principal; 2018-08-27 07:30)
PROC: 02RF08Z Replacement of Aortic Valve with Zooplastic Tissue, Open Approach (ICD-10-PCS; 2018-08-27 07:30)
DX: I25.10 Atherosclerotic heart disease of native coronary artery without angina pectoris (principal); D62 Acute posthemorrhagic anemia; J90 Pleural effusion, not elsewhere classified; I35.0 Nonrheumatic aortic (valve) stenosis; I48.91 Unspecified atrial fibrillation; K21.9 Gastro-esophageal reflux disease without esophagitis; R00.0 Tachycardia, unspecified; I95.9 Hypotension, unspecified

== ENCOUNTER → 2018-09-07 14:30 | Outpatient (CLI) | payer BC ==
[2018-08-28 10:33] VITALS: BMI 35.2
[~2018-09-07 14:30] MED LIST changes: +AMIODARONE HCL200 MG PO; +AUGMENTIN 875-11 TAB PO; +ECOTRIN325 MG PO; +HEMOCYTE PLUS C1 CAP PO; +K-DUR20 MEQ PO; +LASIX40 MG PO; +LOPRESSOR25 MG PO; +PERCOCET 5-3251 TAB PO
--- NOTE | 2018-09-12 12:55 | EC ---
PATIENT:DONNY HALL DATE OF SERVICE: 09/07/18 SEX: M MEDICAL RECORD: [id number] DATE OF : 56 LOCATION:[facility] AGE OF PATIENT: 57 ADMISSION DATE: 09/07/18 REFERRING PHYSICIAN: INTERPRETING PHYSICIAN: JIAN SHARP MD ECHOCARDIOGRAM REPORT ECHO CHARGES 4 ECHO COMPLETE Date: 09/07/18 CLINICAL DIAGNOSIS: EVALUATE LV FUNCTION/EFFUSION ECHOCARDIOGRAPHIC MEASUREMENTS (adult normal given) AC root (d.<3.7cm) 3.1 cm LV Septum d (<1.2 cm> 1.2 cm Valve Excursion 1.2 cm LV Septum (systole) 1.9 cm Left Atria (s.<4.0cm> 3.9 cm LVPW d(<1.2cm) 1.4 cm RV (d.<2.3cm) 1.7 cm LVPW (sytole) 2.0 cm LV diastole(<5.6CM) 1.8 cm MV E-F(>70mm/sec) cm LV systole 2.8 cm LVOT Diameter 1.8 cm MV exc.(>10mm) cm Est.ejection fraction (50-75%) % DOPPLER: LVIT cm/sec A 67.0 cm/sec E 119 cm/sec LA cm/sec RVSP mmHg LVOT 113 cm/sec AOP1/2T m/s Asc. Ao 265 cm/sec RVOT 67.0 cm/sec RA cm/sec PA 137 cm/sec AV Gradient Peak 28.0 mmHg AV Mean 16.3 mmHg AV Area 1.0 cm MV Gradient Peak 7.4 mmHg MV Mean 2.3 mmHg MV Area cm COMMENTS: Milieu Coordinator: 1 MIKHAIL SANOE Bus Operator: 3 Dr. Phan TAPE# PACS Pericardial Effusion Y DATE OF SERVICE: 09/07/2018 Adequate 2-D, color flow and spectral Doppler, and M-mode. LVH is present. LV internal dimension is normal. Wall motion is normal. EF is greater than or equal to 55%. Prosthetic tissue aortic valve is noted with acceptable Doppler velocity. Left atrium is normal at 3.9 cm. Mitral valve shows no prolapse and trace MR only. Right-sided chambers are grossly normal. Trace TR only. ECHOCARDIOGRAM REPORT [id number] DONNY HALL TRANSINT:[id number] Voice Confirmation ID: [id number] DOCUMENT ID: [id number] JIAN SHARP MD at 1255 CC: [id number] DICTATION DATE: 09/09/18 1409 MANAGER CARGO: 09/09/18 1848 DEP CLI 09/07/18 [place] [id number] [place] [id number]
== END | disposition home or self-care (01) ==
LOC: D.RAD 14:30 → D.ECHO 15:00
DX: R79.89 Other specified abnormal findings of blood chemistry (principal); J90 Pleural effusion, not elsewhere classified

== ENCOUNTER → 2018-09-23 13:12 | Outpatient (CLI) | payer BC ==
[2018-08-28 10:33] VITALS: BMI 35.2
[2018-09-23 13:37] LABS: HEMATOCRIT 41.4 % (42.0-54.0); HEMOGLOBIN 13.4 g/dL (13.5-17.5); MCH 29.7 pg (26.0-34.0); MCHC 32.4 g/dL (31.0-37.0); MCV 91.8 fL (80.0-100.0); MEAN PLATELET VOLUME 9.6 fL (7.4-10.4); RBC 4.51 10x6/uL (4.20-6.10); RDW 13.9 % (11.5-14.5); WBC 8.6 10x3/uL (4.8-10.8)
[2018-09-23 13:55] LABS: ALBUMIN 3.4 g/dL (3.4-5.0); ANION GAP 16.8 mmol/L (8-16); BILIRUBIN - TOTAL 0.45 mg/dL (0.2-1.3); CALCIUM 8.7 mg/dL (8.5-10.1); CARBON DIOXIDE 24.2 mmol/L (21.0-32.0); CREATININE - SERUM 1.1 mg/dL (0.6-1.3); PROTEIN - SERUM 7.3 g/dL (6.4-8.2)
== END | disposition home or self-care (01) ==
LOC: D.LAB 08:30 → D.RAD 09:00 → D.LAB 13:12
PROVIDERS: Thoracic Surgery (Cardiothoracic Vascular Surgery)
DX: J91.8 Pleural effusion in other conditions classified elsewhere (principal); D64.9 Anemia, unspecified

== ENCOUNTER → 2018-10-27 09:27 | Outpatient (CLI) | payer BC ==
[2018-08-28 10:33] VITALS: BMI 35.2
[2018-10-27 10:13] LABS: ALBUMIN 3.3 g/dL (3.4-5.0); BILIRUBIN - DIRECT 0.07 mg/dL (0.00-0.30); BILIRUBIN - INDIRECT 0.19 mg/dL (0.00-1.00); BILIRUBIN - TOTAL 0.26 mg/dL (0.2-1.3); PROTEIN - SERUM 7.5 g/dL (6.4-8.2)
== END | disposition home or self-care (01) ==
LOC: D.LAB 10-06 08:15
PROVIDERS: ATTEND Thoracic Surgery (Cardiothoracic Vascular Surgery)
DX: Z51.81 Encounter for therapeutic drug level monitoring (principal); Z79.899 Other long term (current) drug therapy

== ENCOUNTER → 2019-12-24 09:55 | Outpatient (CLI) | payer BC ==
[2018-08-28 10:33] VITALS: BMI 35.2
--- NOTE | 2019-12-26 08:56 | EC ---
PATIENT:DONNY HALL DATE OF SERVICE: 12/24/19 SEX: M MEDICAL RECORD: [id number] DATE OF : 56 [facility] AGE OF PATIENT: 59 ADMISSION DATE: 12/24/19 REFERRING PHYSICIAN: INTERPRETING PHYSICIAN: JIAN SHARP MD ECHOCARDIOGRAM REPORT ECHO CHARGES 4 ECHO COMPLETE Date: 12/24/19 CLINICAL DIAGNOSIS: AVR/CABG ECHOCARDIOGRAPHIC MEASUREMENTS (adult normal given) AC root (d.<3.7cm) 2.1 cm LV Septum d (<1.2 cm> 1.3 cm Valve Excursion 1.0 cm LV Septum (systole) 1.4 cm Left Atria (s.<4.0cm> 4.1 cm LVPW d(<1.2cm) 1.4 cm RV (d.<2.3cm) 3.6 cm LVPW (sytole) 1.5 cm LV diastole(<5.6CM) 5.2 cm MV E-F(>70mm/sec) cm LV systole 3.5 cm LVOT Diameter 1.5 cm MV exc.(>10mm) 1.2 cm Est.ejection fraction (50-75%) % DOPPLER: LVIT cm/sec A 87.0 cm/sec E 82.0 cm/sec LA cm/sec RVSP 21 mmHg LVOT 119 cm/sec AOP1/2T m/s Asc. Ao 217 cm/sec RVOT 87 cm/sec RA cm/sec PA 114 cm/sec AV Gradient Peak 18.84mmHg AV Mean 11.66mmHg AV Area 1.5 cm MV Gradient Peak 3.83 mmHg MV Mean 1.99 mmHg MV Area cm COMMENTS: Guard Rail Installer: 2 ANI IRWIN Election Assistant: 3 Dr. Phan TAPE# PACS Pericardial Effusion N DATE OF SERVICE: Adequate 2D, color flow imaging, spectral Doppler, and M-Mode LVH is present. LV internal dimensions are normal. Wall motion is normal. EF is greater than or equal to 55%. Prosthetic tissue aortic valve is noted with acceptable Doppler velocity and no significant AI. Left atrium is upper limits of normal, mildly dilated at 4.1 cm. Mitral valve shows no prolapse. Trace MR. Right-sided chambers are grossly normal. Trace TR. ECHOCARDIOGRAM REPORT [id number] DONNY HALL TRANSINT:[id number] Voice Confirmation ID: [id number] DOCUMENT ID: [id number] JIAN SHARP MD at 0856 CC: [id number] DICTATION DATE: 12/25/19 1009 PARTY PLAN SALES HOST/HOSTESS: 12/25/19 1516 [facility] CLI 12/24/19 [place] [address] [place] [id number]
== END | disposition home or self-care (01) ==
LOC: D.HCCECHO 09:55
PROVIDERS: ATTEND Internal Medicine Interventional Cardiology
DX: Z95.4 Presence of other heart-valve replacement (principal)

== ENCOUNTER → 2021-01-12 09:58 | Outpatient (CLI) | payer BC ==
[2018-08-28 10:33] VITALS: BMI 35.2
--- NOTE | 2021-01-16 08:13 | EC ---
PATIENT:DONNY HALL DATE OF SERVICE: 01/12/21 SEX: M MEDICAL RECORD: [id number] DATE OF : 56 [facility] AGE OF PATIENT: 60 ADMISSION DATE: 01/12/21 REFERRING PHYSICIAN: INTERPRETING PHYSICIAN: JIAN SHARP MD ECHOCARDIOGRAM REPORT ECHO CHARGES 4 ECHO COMPLETE Date: 01/12/21 CLINICAL DIAGNOSIS: CAD/HTN/AORTIC VALVE REPLACEMENT ASSESS EF AND AORITC VALVE ECHOCARDIOGRAPHIC MEASUREMENTS (adult normal given) AC root (d.<3.7cm) 2.8 cm LV Septum d (<1.2 cm> 1.4 cm Valve Excursion 1.6 cm LV Septum (systole) 1.6 cm Left Atria (s.<4.0cm> 4.0 cm LVPW d(<1.2cm) 1.5 cm RV (d.<2.3cm) 3.4 cm LVPW (sytole) 1.6 cm LV diastole(<5.6CM) 5.0 cm MV E-F(>70mm/sec) cm LV systole 3.1 cm LVOT Diameter 1.6 cm MV exc.(>10mm) 1.3 cm Est.ejection fraction (50-75%) % DOPPLER: LVIT cm/sec A 82.0 cm/sec E 95.0 cm/sec LA cm/sec RVSP 15 mmHg LVOT 86 cm/sec AOP1/2T m/s Asc. Ao 172 cm/sec RVOT 76 cm/sec RA cm/sec PA 109 cm/sec AV Gradient Peak 11.88mmHg AV Mean 7.52 mmHg AV Area 1.5 cm MV Gradient Peak 4.27 mmHg MV Mean 2.08 mmHg MV Area cm COMMENTS: Chief Hydroelectric Station Operator: 2 ANI IRWIN Insurance Licensing Supervisor: 3 Dr. Phan TAPE# PACS Pericardial Effusion N DATE OF SERVICE: Adequate 2D, color flow imaging, spectral Doppler, and M-Mode. FINDINGS: LVH is present. LV internal dimensions are normal. Wall motion is normal. EF is greater than or equal to 55%. Tissue prosthetic aortic valve is noted with acceptable Doppler velocity. No significant AI. Left atrium appears normal at 4.0 cm. Mitral valve shows no prolapse. Trivial MR. Right side is grossly normal. Trivial TR. ECHOCARDIOGRAM REPORT [id number] DONNY HALL TRANSINT:[id number] Voice Confirmation ID: [id number] DOCUMENT ID: [id number] JIAN SHARP MD at 0813 CC: [id number] DICTATION DATE: 01/15/21 1055 TECHNICAL SALES ADVISOR: 01/15/21 1934 DEP CLI 01/12/21 [facility] [address] [place] [id number]
== END | disposition home or self-care (01) ==
LOC: D.HCCECHO 09:58
PROVIDERS: ATTEND Internal Medicine Interventional Cardiology
DX: I42.9 Cardiomyopathy, unspecified (principal)